=== PATIENT | male | born 1950 | race Caucasian/White ===

== ENCOUNTER 2024-01-02 13:43 | Emergency (ER) | payer MEDICARE, OTHER, SELFPAY ==
[2024-01-02 13:48] VITALS: BP 164/82; PULSE 104; TEMP 36.6; O2SAT 97; BMI 30.5
--- NOTE | 2024-01-02 13:57 | XR_ITS ---
The [address] [address] Patient Name: IRINA CASTILLO MRN: [id number] date: 1950 Sex: M Assigned Patient Location: ED.MAIN Current Patient Location: ER Accession/Order Number: [id number] Exam Date: 01/02/2024 14:20 Report Date: 01/02/2024 14:43 At the request of: ELOISA VEGAS Procedure: XR foot RT min 3V PROCEDURE: XR foot RT min 3V COMPARISON: None. HISTORY: puncture wound r/o fb FINDINGS: BONES:Moderate enthesopathic spurring of the calcaneus at the Achilles and plantar insertions. Moderate degenerative change with joint space narrowing marginal osteophyte formation. Severe degenerative change first metatarsal-phalangeal joint with subchondral cystic changes SOFT TISSUES:Negative. No visible soft tissue swelling. EFFUSION:None visible. OTHER: BB marker along the lateral midfoot hindfoot junction with no underlying radiopaque foreign body XR/XR foot RT min 3V IMPRESSION: No radiopaque foreign body observed Electronically authenticated by: OCTAVIO MONGE Date: 01/02/2024 14:43
--- NOTE | 2024-01-02 13:59 | ED.LOWEXI1 ---
HPI HPI - Extremity Injury (Lower) General Chief Complaint: Skin/Abscess/Foreign Body Stated Complaint: LOWER EXTREMITY INJURY, RIGHT Time Seen by Provider: 01/02/24 13:47 Source: patient Mode of arrival: walk-in Limitations: no limitations History of Present Illness HPI Narrative: Patient is a 73-year-old male presents to the ER with concerns of laceration to the right foot. Patient states he was using a power drill with a broken bit when he dropped it on his foot. Patient was wearing sandals, he has a small puncture wound noted to the dorsal lateral aspect of the foot adjacent to the ankle. Bleeding controlled on arrival but patient noted moderate bleeding at home. He is not on any blood thinners. His immunizations are up-to-date including tetanus. Patient does not believe the drill bit stuck into his foot, but caused a laceration on the way to the floor. Denies pain. MD complaint: Reports foot injury Injury: Right: foot Type of Injury: Reports puncture wound Place: Reports home Relieving factors: Reports nothing Exacerbating factors: Reports nothing Context: Reports direct blow Other symptoms: Reports none Related Data Previous Rx's ?Medication ?Instructions ?Recorded cephalexin 500 mg capsule 500 mg PO Q8H 5 days #15 caps 01/02/24 Allergies Allergy/AdvReac Type Severity Reaction Status Date / Time No Known Drug Allergies Allergy Verified 01/02/24 13:48 Opioid HPI Opioid Management Most Recent Pain and Opioid Data: Last Pain Scale 3 01/02/24 14:17 Review of Systems ROS Constitutional Denies: fever or chills Musculoskeletal Denies: back pain, neck pain, extremity pain, extremity swelling or joint pain Hematologic/Lymphatic Denies: easy bruising PFSH PFSH Social History Little interest or pleasure in doing things: not at all Feeling down, depressed, or hopeless: not at all Exam Narrative Exam Narrative: Vital signs reviewed and nurse's notes. The patient is not hypoxic. General: Alert, no acute distress, patient resting comfortably Skin: warm, intact with excpetion of puncture wound. no pallor noted Head: Normocephalic, atraumatic Eye: Normal conjunctiva, no exudates Respiratory: No acute distress, lungs CTA Musculoskeletal: No evidence of deformity to the right foot. There is no swelling.+ Small puncture wound to dorsal lateral aspect of foot just ( over cuboid) . There is no ecchymosis. No erythema or warmth noted. DP and PT pulses are intact 2+. Normal sensation, normal capillary refill less than 2 seconds. There is no cyanosis or mottling noted. The patient has tenderness only localized to puncture wound. The patient has no laxity or pain with anterior drawer.. The patient was able to flex and extend digits without pain. Ankle dorsiflexion and plantar flexion painless. No tenderness noted to the 5th MT, midfoot, ankle or proximal fibular area. There is no pain with calcaneal squeeze, achilles tendon is intact and no defect is palpated. The patient has no pelvic instability. The patient has no shortening or rotation noted to the bilateral lower extremities. Neurological: alert and orient x4, normal sensory and motor observed. Psychiatric: Cooperative Constitutional Vital Signs, click to edit/add: Last Vital Signs Temp 98 F 01/02/24 13:48 Pulse 104 H 01/02/24 13:48 Resp 18 01/02/24 13:48 BP 164/82 H 01/02/24 13:48 Pulse Ox 97 01/02/24 13:48 O2 Del Method Room Air 01/02/24 13:48 Course Vital Signs Vital signs: Vital Signs Temperature 98 F 01/02/24 13:48 Pulse Rate 104 H 01/02/24 13:48 Respiratory Rate 18 01/02/24 13:48 Blood Pressure 164/82 H 01/02/24 13:48 Pulse Oximetry 97 01/02/24 13:48 Oxygen Delivery Method Room Air 01/02/24 13:48 Temperature 98 F 01/02/24 13:48 Pulse Rate 104 H 01/02/24 13:48 Respiratory Rate 18 01/02/24 13:48 Blood Pressure 164/82 H 01/02/24 13:48 Pulse Oximetry 97 01/02/24 13:48 Oxygen Delivery Method Room Air 01/02/24 13:48 MDM - Extremity Injury (Lower) MDM Narrative Medical decision making narrative: Discussed puncture wound from drill bit, no evidence of foreign body. Radiologist interpretation pending. No evidence of acute fracture, remote fifth metatarsal fracture noted and some arthritic changes. Patient irrigated extensively no evidence of foreign body. Intact extensor tendons noted. Patient had 1 suture placed to help with bleeding. We discussed that the wound may still bleed or drain a little bit which is good for infectious process but should not saturate multiple dressings. We discussed suture removal in 10 days. He is to keep the area clean and dry avoid submerging in the shower. Follow-up to PCP for suture removal. He will be placed on a short course of Keflex given environment prior to arrival. Patient will return to the ER symptoms worsen or new symptoms develop. The patient is to followup with primary care physician in next 2-3 days or to return to the emergency department should any of the signs or symptoms worsen or new symptoms develop. Patient had questions answered. The patient agrees with the following Diagnosis and Treatment plan and the patient will be discharged home. Imaging Data xr foot: Radiologist's impression: ITS Impressions Foot X-Ray 01/02/24 13:57 IMPRESSION: No radiopaque foreign body observed Electronically authenticated by: OCTAVIO MONGE Date: 01/02/2024 14:43 Discharge Plan Discharge Chief Complaint: Skin/Abscess/Foreign Body Clinical Impression: Puncture wound of foot, right Patient Disposition: Home, Self-Care Condition: Good Prescriptions / Home Meds: New cephalexin 500 mg capsule 500 mg PO Q8H 5 Days Qty: 15 0RF Print Language: Turkmen Instructions: Puncture Wound in the Foot (ED) Additional Instructions: Call PCP for suture removal in 10 days. return to ER if symptoms worsen or new symptoms develop: Recommend elevation and ice for the next 2-3 days, do not submerge in water. Referrals: José Villaseñor MD [Primary Care Provider] - 1 week Procedures ED Laceration Laceration Laceration 1: Additional comments: Laceration repair: (R) Foot puncture wound Done under sterile conditions. The use of Betadine was used to prep and clean the area. Local injection with lidocaine 1% with epi was used, approximately 1.5 ml. The wound was irrigated copiously with normal saline. The wound was explored there was no evidence of foreign material. The laceration was approximated with 5-0 prolene. 1 simple interrupted sutures were placed. Patient tolerated the procedure well. The patient was neurovascularly intact post. the patient had bacitracin applied to the laceration and a dry sterile dressing was place. Secured with sharon wrap. The patient will need to follow-up in the next 10 days for removal.
[2024-01-02] MEDS: BACITRACIN 0.9 GM PACKET 1 PACKET TOPICAL (14:15)
[2024-01-02] MEDS: LIDOCAINE HCL 1%-EPINEPHRINE 1:100,000 20 ML MDV 10 ML INJ (14:15)
[2024-01-02] MEDS: SODIUM CHLORIDE 0.9% IRRIG SOLUTION 1,000 ML BOTTLE 1000 ML IRR (14:15)
[2024-01-02 14:54] VITALS: BP 145/95; PULSE 75; O2SAT 99
== END 2024-01-02 14:54 | disposition home or self-care (01) ==
PROVIDERS: Emergency Provider Emergency Medicine; PCP Family Medicine
DX: S91.331A Puncture wound without foreign body, right foot, initial encounter (principal); W20.8XXA Other cause of strike by thrown, projected or falling object, initial encounter
CPT/HCPCS: 12001; 73630; 99283